=== PATIENT | male | born 1995 | race Caucasian/White ===

== ENCOUNTER 2024-07-16 20:17 | Emergency (ER) | payer OTHER, SELFPAY ==
[2024-07-16] MEDS ORDERED: MORPHINE 4 MG/ML SYR ONE (20:56)
[2024-07-16] MEDS ORDERED: ONDANSETRON 4 MG/2 ML VIAL ONE (20:56)
[2024-07-16] MEDS ORDERED: KETOROLAC 30 MG/ML INJ ONE (20:56)
[2024-07-16] MEDS ORDERED: NA CHLORIDE 0.9% 1,000 ML ONE ×2 (20:57→22:54)
[2024-07-16] MEDS ORDERED: FAMOTIDINE 20 MG/2 ML VIAL IV ONE (20:57)
[2024-07-16] MEDS ORDERED: TDAP (DIPHTH,PERTUSS(ACELL),TET VAC) 0.5 ML VIAL IMVAC ONE (20:57)
[2024-07-16] MEDS ORDERED: CEFAZOLIN SODIUM 2 GM/VIAL ONE (20:58)
[2024-07-16] MEDS ORDERED: NA CHLORIDE 0.9% 100 ML ONE (21:14)
[2024-07-16] MEDS ORDERED: droPERidol 5 MG/2 ML VIAL ONE (21:19)
[2024-07-16 21:50] LABS: Absolute Eosinophils 0.2 K/uL (0-0.5); Absolute Lymphocytes (CBC) 1.4 K/uL (0.7-4.9); Absolute Monocytes 0.7 K/uL (0.1-1.3); Absolute Neutrophil 5.7 K/uL (1.8-8.0); Basophils % 0.4 % (0-1.3); Eosinophils % 2.4 % (0-4.4); Hematocrit 38.7 % (39.6-49.0); Hemoglobin 13.7 g/dL (13.6-17.9); Lymphocytes % 16.9 % (15.3-44.8); MCH 30.7 pg (27.0-35.0); MCHC 35.3 g/dL (32.0-36.0); MCV 86.8 fL (80-100); MPV 8.8 fL (7.6-11.3); Monocytes % 9.2 % (3.3-12.3); Neutrophils % 71.1 % (41.7-73.7); Nucleated Red Blood Cells % 0.1 % (0-0); Platelets 218 thou/uL (152-406); RBC Red Blood Cell Count 4.45 M/uL (4.33-5.43); Red Cell Distribution Width 13.1 % (12.1-15.2)
[2024-07-16 22:04] LABS: Albumin 2.8 g/dL (3.4-5.0); Albumin/Globulin Ratio 0.8 (1.1-1.8); Bilirubin Total 0.4 mg/dL (0.2-1.0); Globulin 3.3 g/dL (2.3-3.5); Protein, Total 6.1 g/dL (6.4-8.2)
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
[2024-07-16] MEDS ORDERED: METOCLOPRAMIDE 10 MG/2mL INJ ONE (22:43)
[2024-07-16] MEDS ORDERED: FENTANYL CITR 100 MCG/2 ML ONE (22:44)
[2024-07-17 00:17] VITALS: O2SAT 97
[2024-07-17 00:18] VITALS: BP 138/111; TEMP 98.5
== END 2024-07-16 23:55 | disposition short-term general hospital (02) ==
LOC: EDSEX 20:17 → ER 20:17
DX: T25.39 Burn of third degree of multiple sites of ankle and foot (principal); T25.391A Burn of third degree of multiple sites of right ankle and foot, initial encounter; X10.2XXA Contact with fats and cooking oils, initial encounter
CPT/HCPCS: 96365; 85025; 36415; 80053; 96375; 99285; J2765; J3010; J2405; J1790; J7030 ×2; 90715